=== PATIENT | female | born 1955 | race Hispanic/Latino ===

== ENCOUNTER 2016-12-28 23:36 | Emergency (ER) | payer OTHER ==
[~2016-12-28] VITALS: Ht 147.3 cm; Wt 53.6 kg
[~2016-12-28 23:36] MED LIST: ALBU8.5H2 INHALATION; ALEN70TA2 PO; CETI10TA27 PO; DICL75TA6 PO; FLUT12AE8 IH; FLUT16SP NS; OMEP20TA86 PO; [UNRECOGNIZED DRUG - CODE] AFFECT_EYE
[2016-12-28 23:44] VITALS: BP 119/77; PULSE 60; RESP 18; O2SAT 100
--- NOTE | 2016-12-29 00:02 | ED.REPORT ---
HPI-Abd Pain F 40 and Over Date of Service Dec 29, 2016 ED Provider: El Molina MD A 61 year old female with a history of diverticulosis, hemorrhoids, and recent documented cholelithiasis presents to the ED with epigastric pain onset 1800 this evening, after eating fatty food. The patient denies vomiting, fever, diarrhea, hematochezia, melena, or other symptoms. She has an appointment to schedule cholecystectomy scheduled with surgery for the near future. Nursing Notes Stated Complaint: ABDOMINAL PAIN Chief Complaint: Female Abdominal Pain Nursing Notes Reviewed: Yes Allergies: Coded Allergies: No Known Allergies (Verified Allergy, Unknown, 07/12/15) Scheduled Albuterol HFA (Proair HFA) 8.5 Gm Hfa.aer.ad 2 PUFFS INHALATION Q4H Alendronate Sodium (Fosamax) 70 Mg Tablet 70 MG PO W Diclofenac ER (Diclofenac ER) 75 Mg Tablet 75 MG PO DAILY Fluticasone Propionate (Flovent HFA 110 mcg) 12 Gm Aer.w.adap 2 PUFFS IH BID Fluticasone Propionate (Fluticasone Propionate Nasal) 16 Gm [place].susp 2 SPRAY NS BID Omeprazole (Omeprazole) 20 Mg Tablet.dr 20 MG PO DAILY Omeprazole (Omeprazole) 20 Mg Tablet.dr 20 MG PO BID Scheduled PRN Ondansetron ODT (Ondansetron ODT) 8 Mg Tab.rapdis 8 MG PO QID PRN PRN For Nausea Miscellaneous Medications Cetirizine HCl (All Day Allergy) 10 Mg Tab.chew 10 MG PO Jan/Polymyx B Sulf/Dexameth (Maxitrol Eye Drops) 5 Ml Drops.susp 5 ML OP General Time Seen by MD: 00:02 Chief Complaint Abdominal pain Hx Obtained From: Patient Arrived By: Walk-in Sudden in Onset?: Yes Onset Occurred: 5 - 8 hours ago Symptom Duration: Since onset Location: : Epigastric Quality: Painful Severity: Current: Moderate Severity: Maximum: Moderate Associated with: Denies: Diarrhea, Fever, Hematochezia, Melena, Vomiting Pertinent Negative: Relieved by nothing Context Related History: Reports: Cholelithiasis, Diverticulosis Recent Healthcare: No recent doctor visit Similar Sx Previous: Yes Past Medical History Past Medical History Cholelithiasis Diverticulosis Hemorrhoids Past Surgical History None reported Smoking History Never Smoker Ambulatory Status Independent Review of Systems Constitutional: Denies: Fever Respiratory: Denies: Non-productive cough, Shortness of breath GI: Reports: Abdominal pain (Epigastric), Denies: Diarrhea, Hematochezia, Melena, Vomiting Complete sys rev & neg: except as marked. Physical Exam Physical Exam Notes: Vital Signs Vital Signs (First) Date Time Temp Pulse Resp B/P Pulse Ox O2 Delivery O2 Flow Rate FiO2 12/28/16 23:44 35.6 60 18 119/77 100 Room Air Initial VS: Reviewed Head / Eyes: Atraumatic, Normocephalic ENT: Conjunctiva normal, No scleral icterus Neck: Supple, Full range of motion Skin: Warm, Dry, No cyanosis Neurologic: Alert, Oriented, Nonfocal Psychiatric: Mood/affect normal, Behavior normal, Normal thought content General/Constitutional: Awake, Alert, No acute distress, Well hydrated Respiratory / Chest: Breath sounds NL, Breath sounds = bilat, No respiratory distress Cardiovascular: Heart rate NL, Regular rhythm, Heart sounds NL Abdomen: Soft, BS normoactive Tenderness/Guarding/Rebound: Positive: Tender RUQ..., Tender epigastric Interpretation & Diagnostics Lab Results Interpretation Result Diagram: 12/29/16 0050 12/29/16 0050 Test 12/29/16 00:50 White Blood Count 12.2th/mm3 (3.8-10.1) Red Blood Count 4.30mil/mm3 (3.90-5.20) Hemoglobin 12.8g/dL (12.0-15.6) Hematocrit 37.5% (35.0-46.0) Mean Corpuscular Volume 87.2fL (81-100) Mean Corpuscular Hemoglobin 29.8pg (27.0-35.0) Mean Corpuscular Hemoglobin Concent 34.1% (32.0-37.0) Red Cell Distribution Width 12.6% (12.3-15.4) Platelet Count 197bil/L (150-400) Neutrophils (%) (Auto) 78.2% (40-74) Lymphocytes (%) (Auto) 15.7% (14-46) Monocytes (%) (Auto) 5.2% (4-12) Eosinophils (%) (Auto) 0.5% (0-5) Basophils (%) (Auto) 0.2% (0-3) Sodium Level 139mEq/L (134-144) Potassium Level 3.7mEq/L (3.5-5.2) Chloride Level 100mEq/L (97-108) Carbon Dioxide Level 27mmol/L (18-29) Blood Urea Nitrogen 12mg/dL (8-27) Creatinine 0.41mg/dL (0.57-1.00) Estimat Glomerular Filtration Rate 224mL/min (>59) Glucose Level 115mg/dL (60-99) Calcium Level 8.5mg/dL (8.5-10.1) Magnesium Level 1.9mg/dL (1.6-2.6) Total Bilirubin 0.3mg/dL (0.0-1.2) Aspartate Amino Transf (AST/SGOT) 56U/L (0-50) Alanine Aminotransferase (ALT/SGPT) 30U/L (0-32) Alkaline Phosphatase 105U/L (25-165) Total Protein 7.0g/dL (6.4-8.4) Albumin 4.0g/dL (3.4-5.0) Lipase 37U/L (13-60) Hold Mars Top Tube Received (Received) ECG Interpretation ECG Interpretation: Sinus rhythm rate 64 Probable lateral infarct, old Time: 00:32 Interpreted by: ED physician Re-Eval/Medical Decision Med Decision/Clinical Course 61-year-old female with documented cholelithiasis, presents with biliary colic. This began after a fatty meal. She was counseled to avoid fat. She has a mild white count elevation and no other evidence of cholecystitis, and is now pain-free. Discharged in stable condition for follow-up with surgery as already scheduled. Source of Hx: Old records Re-Evaluation/Progress : Time of Eval: 02:25 Patient Status: Condition improved, Pain improved Re-Evaluation/Progress Note: Patient is feeling much better. Discussed with patient lab results, diagnosis, and plan for discharge. Follow-up and return to the ER instructions given. Patient agrees with plan for care and all questions were addressed. Counseled Regarding: Diagnosis, Lab results, Need for follow-up, When/why to return to ED Discharge & Departure Shift Change Sign-Out Response to Therapy: Improved Primary Impression: Biliary colic Disposition: Home Discharge Condition All VS Reviewed: Yes Condition: Improved Patient Instructions: Biliary Colic (ED) Additional Instructions: Do not any fat. Follow-up with your surgeon as soon as possible. Omeprazole twice daily. Zofran up to four times daily if needed for nausea. Ibuprofen 600 mg if needed for pain. Return if you have pain lasting longer than six hours. Referrals: Argelia Peterson (PCP) [place] Attestation Portions of this note were transcribed by Anabelle Ricks. I, Dr. Molina, personally performed the history, physical exam, and medical decision-making; I reviewed and confirmed the accuracy of the information in the transcribed note. Signed by: Ciera Livingston, 12/29/2016, 03:10 copies to: Argelia Peterson Christopher W MD Dec 29, 2016 00:02 ANABELLE RICKS Dec 29, 2016 00:22
[2016-12-29] MEDS ORDERED: 0.9% Sodium Chloride 1,000 ML IV ONE (00:06)
[2016-12-29] MEDS ORDERED: HYDROmorphone 0.5 mg/0.5 mL iSecure Syringe IVPUSH PRN (00:10)
[2016-12-29] MEDS ORDERED: Pantoprazole 4 mg/mL 10 mL Inj IVPUSH ONE (00:10)
[2016-12-29] MEDS ORDERED: Ondansetron 2 mg/mL 2 mL Inj IVPUSH ONE (00:10)
[2016-12-29 01:03] LABS: BASOPHILS % (AUTO) 0.2 % (0-3); EOSINOPHILS % (AUTO) 0.5 % (0-5); MONOCYTES % (AUTO) 5.2 % (4-12); Mean Corpuscular Hemoglobin 29.8 pg (27.0-35.0); Mean Corpuscular Volume 87.2 fL (81-100); NEUTROPHILS % (AUTO) 78.2 % (40-74); Platelet Count 197 bil/L (150-400)
[2016-12-29 02:14] LABS: Magnesium 1.9 mg/dL (1.6-2.6)
[2016-12-29] MEDS ORDERED: OMEP20TA86 PO (02:32)
[2016-12-29] MEDS ORDERED: ONDA8TAB10 PO (02:32)
[2016-12-29 02:56] VITALS: BP 104/58; PULSE 82; RESP 13; O2SAT 100
[2017-01-31] MEDS ORDERED: PRED50TA PO (12:01)
[2017-01-31] MEDS ORDERED: [UNRECOGNIZED DRUG - CODE] PO (12:01)
[2017-01-31] MEDS ORDERED: GUAI120L57 PO (12:01)
[2017-01-31] MEDS ORDERED: GABA600T2 PO (12:01)
[2017-01-31] MEDS ORDERED: ASPI325T32 PO (12:01)
[2017-01-31] MEDS ORDERED: OMEG-38 PO (12:01)
== END 2016-12-29 02:50 | disposition home or self-care (01) ==
LOC: SED 23:36
DX: K80.20 Calculus of gallbladder without cholecystitis without obstruction (principal); Z87.19 Personal history of other diseases of the digestive system
CPT/HCPCS: 36415; 80053; 83690; 83735; 85025; 93005; 96361; 96374; 96375; 99285; J1170; J2405; J7030

== ENCOUNTER 2017-02-06 09:15 | Day surgery (SDC) | payer OTHER ==
[~2017-02-06] VITALS: Ht 147.3 cm; Wt 52.4 kg
[2017-02-06] VITALS (11 sets, daily range): BP systolic 88–126; BP diastolic 53–73; PULSE 51–73; RESP 13–18; O2SAT 92–100
[2017-02-06] MEDS: Lactated Ringer's 1,000 ML IV SCH ×2 (05:24→13:41)
[~2017-02-06 09:15] MED LIST changes: +ASPI325T32 PO; -CETI10TA27 PO; -FLUT12AE8 IH; +GABA600T2 PO; +GUAI120L57 PO; +OMEG-38 PO; +PRED50TA PO; +[UNRECOGNIZED DRUG - CODE] PO
[2017-02-06] MEDS ORDERED: Phenylephrine/NS 100 mCg/mL 10 mL Syringe IVPUSH ONE (09:16)
[2017-02-06] MEDS ORDERED: Ondansetron 2 mg/mL 2 mL Inj ONE (09:16)
[2017-02-06] MEDS ORDERED: fentaNYL-PF 50 mCg/mL 2 mL Inj ONE (09:16)
[2017-02-06] MEDS ORDERED: Dexamethasone 4 mg/mL Inj ONE (09:16)
[2017-02-06] MEDS ORDERED: Propofol 10,000 mCg/mL 20 mL Inj ONE (09:16)
[2017-02-06] MEDS ORDERED: Rocuronium 10 mg/mL 5 mL Inj ONE (09:16)
[2017-02-06] MEDS ORDERED: Neostigmine 1 mg/mL 10 mL Inj ONE (09:16)
[2017-02-06] MEDS ORDERED: Glycopyrrolate 0.2 MG/ML 1mL Inj ONE (09:16)
[2017-02-06] MEDS ORDERED: Bupivacaine-MPF 0.5% W/EPI 30 mL Inj INFILTRATE ONE (13:41)
[2017-02-06] MEDS ORDERED: Lactated Ringer's 500 ML IV PRN (13:42)
[2017-02-06] MEDS ORDERED: Lactated Ringer's 1,000 ML IV SCH (13:42)
--- NOTE | 2017-02-06 13:42 | PCM.HPANE ---
Patient Data Surgeon Admitting Provider: Attending Provider:Shante Aguayo MD Primary Care Physician:Argelia Peterson Other Provider:Nadya Monk Anesthesia Reason for Visit Chronic Cholecystitis Ht/WT & BMI Height (Feet): 4 Height (Inches): 10 Weight (Kilograms): 54.975 Body Mass Index 25.00 Allergies Coded Allergies: cyclobenzaprine (Verified Allergy, Unknown, UNKNOWN, 01/31/17) sulfamethoxazole (Verified Allergy, Unknown, UNKNOWN, 01/31/17) trimethoprim (Verified Allergy, Unknown, UNKNOWN, 01/31/17) Past Anesthesia History Anesthesia History: Denies:: Abnormal Airway, Anesthesia Reactions, Difficult Intubation, Fam Anesthesia Reaction, Fam Malignant Hypertherm, Malignant Hyperthermia Diabetes History Hx Diabetes?: No MRSA MRSA: No Medications Active Scripts Omeprazole 20 Mg Tablet.dr20 Mg PO BID #60 TABLET Prov:El Molina MD 12/29/16 Reported Medications Guaifenesin/D-Methorphan Hb/PE (Robitussin Cough-Cold Cf Liq)118 Ml Liquid1-2 Tsp PO HS PRN PRN ROBITUSSIN AC 01/31/17 Prednisone (PredniSONE)50 Mg Aeokxh42 Mg PO DAILY Ref 0 01/31/17 Gabapentin 600 Mg Pxjtit553 Mg PO BID Ref 0 01/31/17 [place]-3/Dha/Epa/Fish Oil (Fish Oil 1,000 mg Softgel)1 Each Capsule1 Each PO TID 01/31/17 Guaifenesin/Codeine Phosphate (Codeine-Guaifen 10-100 mg/5 ml)120 Ml Zaseft92 Ml PO QID PRN PRN 01/31/17 Aspirin 325 Mg Aleyun816-614 Mg PO TID #1 BOTTLE FOR 1 WEEK 01/31/17 Albuterol HFA (Proair HFA)8.5 Gm Hfa.aer.ad2 Puffs INHALATION Q4H #1 INHALER 07/12/15 Omeprazole 20 Mg Tablet.dr20 Mg PO DAILY 07/12/15 Jan/Polymyx B Sulf/Dexameth (Maxitrol Eye Drops)5 Ml Drops.susp5 Ml AFFECT_EYE TID 07/12/15 Fluticasone Propionate (Fluticasone Propionate Nasal)16 Gm [place].susp2 Maple NS BID #16 GM Ref 0 9/15/15 Diclofenac ER 75 Mg Oevfhp93 Mg PO BID 07/12/15 Alendronate Sodium (Fosamax)70 Mg Iwbdth53 Mg PO W 30 Days Ref 0 07/12/15 Discontinued Reported Medications Fluticasone Propionate (Flovent HFA 110 mcg)12 Gm Aer.w.adap2 Puffs IH BID #12 GM Ref 0 07/12/15 Cetirizine HCl (All Day Allergy)10 Mg Tab.chew10 Mg PO 07/12/15 Discontinued Scripts Ondansetron ODT 8 Mg Tab.rapdis8 Mg PO QID PRN For Nausea #20 TABLET Prov:El Molina MD 12/29/16 History History of ENT Problems?: Yes HEENT History: Positive for:: Sinus Problem (SINUSITIS) Denies:: Abnormal Airway Cataracts (HX OF ALLERGIC CONJUNCTIVITIS) Difficult Intubation Hearing Problem Hx of Heart Problems?: Yes Cardiovascular History: Positive for:: Chest Pain (PROBABLY R/T CHRONIC CHOLECYSTITIS/GERD) Denies:: Congestive Heart Failure Heart Murmur Hypertension (HYPERLIPIDEMIA) Hx of Respiratory Problem?: Yes Respiratory History: Positive for:: Asthma (MILD) Use of Inhalers / NEBS Denies:: Tuberculosis Use of C-PAP Machine Hx Neurologic Problems?: No Neurological History: Denies:: CVA Hx of GI Problems?: Yes Gastrointestinal History: Positive for:: Gall Bladder Disease (CHRONIC CHOLECYSTITIS=CURRENT PROBLEM C/OF INTERMITTANT EPIGASTRIC PAIN) Gastroesphageal Reflux Liver Disease (HX ELEVATED LFT'S) Denies:: Diverticulitis (DIVERTICLOSIS) Rectal Bleeding (HX HEMORRHOIDS, COLON POLYPS) Hx of Problems?: No Female Hx: Denies:: Currently Skin History: Denies:: History Skin Disorders? Pressure Ulcers Musculoskeletal History: Positive for:: Fibromyalgia Osteoarthritis (OSTEOPENIA) Hx of Psycho/Social Problems?: No Hx Surgeries?: Yes (DOUG/BSO) Hx Any Other Health Problems?: Yes Other History: Denies:: Cancer Endocrine Disease Hospitalization History Blood Transfusions: Denies:: Blood Transfusions Hx Diabetes: No Hx Alcohol Use: NoHx Substance Use: No Smoking Status: Never Smoker Have You Smoked inLast 12 mo: No Stop/Bang S-Snoring: Do You Snore Loudly: No T-Tired: feel tired, fatigued: No O-Obsered: Observed not breath: No P-Blood Pressure: treated: No B- Body Mass Index > 35 kg/m2: No A- Age over 50: Yes N- Neck Large Circumference: No G- Gender Male: No GABRIELA Total Score: 1 Risk Assessment Category Category 1A: Patient has history of documented sleep apnea, and HAS NOT received any narcotic, sedative or anesthesia administration during this stay. Category 1B: Patient has history of documented sleep apnea, and HAS received any narcotic , sedative or anesthesia administration during this stay Category 2: Patient has SUSPECTED Obstructive Sleep Apnea, and HAS received any narcotic , sedative or anesthesia administration during this stay. Category 3: Patient has SUSPECTED Obstructive Sleep Apnea and HAS NOT received narcotic, sedative or anesthesia administration during this stay. Category 4: Outpatient in Procedural Areas with known sleep apnea or who screen positive for High Risk via the STOP/BANG questionnaire. Exam Exam General Appearance: Alert, Oriented X3, Cooperative, No Acute Distress HEENT/AIRWAY: MP 2 Lungs: Clear to Auscultation, Normal Air Movement Heart: Exam Unremarkable, Regular Rate/Rhythm, No Murmurs/Rubs/Gallops Meds/Labs/Diagnostics Admission Meds Current Medications Lactated Ringer's (Lr) 1,000 ml @ 120 mls/hr Q8H20M IV Last administered on t 05:24; Start 02/06/17 at 05:00; Stop 02/06/17 at 13:19 Plan Impression Patient chart reviewed, patient interviewed and anesthestic plan with risks, benefits, and alternatives discussed, and informed consent obtained. ASA Physical Status: ASA2 Mod Systemic Disease Anesthetic Plan: GA Bene/Risks/Altern/Consents: Yes HP Complete Prior to Induction: Yes Srinivasa Finley MD Feb 06, 2017 10:12
[2017-02-06] MEDS ORDERED: Phenylephrine 10,000 mCg/mL Inj IVPUSH PRN (13:45)
[2017-02-06] MEDS ORDERED: fentaNYL-PF 50 mCg/mL 2 mL Inj IVPUSH PRN (13:45)
[2017-02-06] MEDS ORDERED: HYDROmorphone 1 mg/mL Inj IVPUSH PRN (13:45)
[2017-02-06] MEDS ORDERED: Dexamethasone 4 mg/mL Inj IVPUSH PRN (13:45)
[2017-02-06] MEDS ORDERED: Ondansetron 2 mg/mL 2 mL Inj IVPUSH PRN (13:45)
[2017-02-06] MEDS ORDERED: EPHEDrine Sulfate 50 mg/mL Inj IVPUSH PRN (13:45)
[2017-02-06] MEDS ORDERED: MetoCLOpramide 5 mg/mL 2 mL Inj IVPUSH PRN (13:45)
[2017-02-06] MEDS ORDERED: Atropine 0.4 mg/mL Inj IVPUSH PRN (13:45)
[2017-02-06] MEDS ORDERED: oxyCODONE-Acetamin 5-325 mg Tablet PO PRN (14:30)
--- NOTE | 2017-02-06 14:36 | PCM.SURGOP ---
Surgical Operative Report Date of Service: Feb 06, 2017 Pre Operative Diagnosis Chronic cholecystitis Post Operative Diagnosis Chronic cholecystitis Procedure: Laparoscopic cholecystectomy with intraoperative cholangiogram, with interpretation Surgeon and Senior Credit Analyst: Surgeon: Shante Aguayo M.D. Assistants: Naresh Burch PA-C; Jordy Rashid MS3 The presence of an assistant wrestling coach was necessary for dissection and retraction. Indication for Procedure This is a 61-year-old woman who presented with postprandial abdominal pain. She presented to the emergency department with a white blood cell count of 12, and underwent abdominal ultrasound revealing multiple gallstones without pericholecystic fluid or gallbladder wall thickening. She was discharged and referred to the surgery clinic. The risks and benefits of laparoscopic cholecystectomy were presented to her, and she elected to proceed. Findings: 1. Moderately inflamed gallbladder with overlying adhesions. 2. Normal intraoperative cholangiogram with a moderate cystic duct (the cholangiocatheter traversed through the cystic duct into the common bile duct), no filling defects, and adequate visualization of the right and left hepatic ducts, common hepatic duct, common bile duct, with good filling of the duodenum. Procedure Details The patient was brought to the operating room and placed in supine position. General endotracheal anesthesia was smoothly induced. Antibiotics were infused. A warming blanket and SCDs were placed. A foot board was placed. The operative field was prepped and draped in sterile fashion. A pause was performed to confirm the correct patient, procedure, site, and side. A transverse 10 mm incision was made just below the umbilicus. The abdomen was entered under direct vision using a Jessica port. Three additional 5 mm ports were placed in the epigastrium and right upper quadrant. The gallbladder was identified and lifted cephalad. There were moderate adhesions due to cholecystitis, and substantial pericholecystic edema. Dissection then proceeded to identify the cystic duct, cystic artery, and to expose the lower one-third of the cystic plate. Once there were two and only two structures entering the gallbladder, a clip was placed on the gallbladder side of the cystic duct. A ductotomy was made and a cholangiocatheter was inserted. A cholangiogram was performed and the cystic duct was patent with normal filling of the common hepatic duct, common bile duct, and right and left hepatic ducts, as noted above. The cholangiocatheter was then removed, two clips were placed on the cystic duct and it was divided. The cystic artery was clipped on both the gallbladder side and the patient's side and divided. The gallbladder was then removed from its bed on the liver with electrocautery. Prior to completely removing the gallbladder, a final look was taken at the stump of the cystic artery and cystic duct, and there was no bleeding or bile leak. The gallbladder was then fully removed from the liver and placed in an EndoCatch bag and removed. The three 5 mm ports were removed under direct vision, the 10 mm mid abdominal port was removed, and a [id number] 0 PDS was used to close the fascia. There was no fascial defect at the end of the case. 0.5% Marcaine with epinephrine was infused at all port sites for postoperative analgesia. The skin was closed with subcuticular 4-0 Monocryl. Sterile dressings were placed. Sponge, instrument, and needle counts were correct at the end of the procedure. The gallbladder was opened on the back table was found to contain 2 large stones as well as multiple small stones and sludge. The patient was awakened from general anesthesia and taken to the postoperative care unit in good condition. Complications There were no periprocedural complications identified. Surgical Specimen Removed: Yes Specimen sent to Pathology: Yes Surgical Specimen description: Gallbladder Anesthetic Plan: GA Grafts, Implants: None Output, Estimated Blood Loss: 5 (ml) Blood Administration during butcher: No Shante Aguayo MD Feb 06, 2017 14:36
[2017-02-06] MEDS ORDERED: HYDROmorphone 0.5 mg/0.5 mL iSecure Syringe ONE (15:01)
--- NOTE | 2017-02-06 15:12 | DRSVH ---
PROCEDURE: X-RAY OPERATIVE CHOLANGIOGRAM ([id number]) INDICATIONS: CHOLECYSTITIS COMPARISON: [facility], US, US ABDOMEN, 12/12/2016, 7:13. FINDINGS: Biliary ducts: The surgeon injected contrast into the biliary ducts after cannulation of the cystic duct stump. Visualized intra- and extrahepatic bile ducts are normal in caliber, without strictures. No intraluminal filling defects to suggest retained ductal stones or sludge. No evidence for iatro genic ductal injury. Duodenum: Contrast flows promptly through the sphincter of Oddi into the duodenum, which appears nor mal in caliber. IMPRESSION: Normal exam. Dictated by: Bradly CERNA Interpreted: Regina Mckeon MD on 02/06/2017 at 15:11 Transcribed by: NHI on 02/06/2017 at 15:11 Approved by: Regina Mckeon M.D. on 02/06/2017 at 22:26
--- NOTE | 2017-02-06 15:49 | PCM.ANEP1 ---
Post Anesthesia Phase 1 PACU Phase 1 Assessment Date of Service: Feb 06, 2017 Vital Signs Vital Signs Date Time Temp Pulse Resp B/P Pulse Ox O2 Delivery O2 Flow Rate FiO2 02/06/17 15:45 60 17 99/56 95 Room Air 02/06/17 15:29 36.2 63 13 95/61 92 Room Air 02/06/17 15:15 51 13 88/53 96 Room Air 02/06/17 15:00 36.2 56 18 109/61 99 Room Air 02/06/17 14:45 36.6 66 17 115/60 96 Room Air 02/06/17 14:40 71 15 115/61 100 Nasal Cannula 3 02/06/17 14:35 73 14 116/63 99 Nasal Cannula 4 02/06/17 14:32 36.7 121/62 02/06/17 10:10 36.3 63 16 126/73 98 Room Air Anesthetic Administered: GA Level of Alertness: Sleepy, easy to arouse ASH's with Equal Strength: Yes Pain: No Nausea or Vomiting: No Oxygen Delivery: Room Air Lungs: Clear to Auscultation, Normal Air Movement Dermatome Level: Full Sensation Srinivasa Finley MD Feb 06, 2017 15:49
--- NOTE | 2017-02-06 15:50 | PCM.ANEP2 ---
Post Anesthesia Evaluation ASA/CMS Post Anesthesia VS in Patient's Normal Range?: Yes Resp Stable; Airway Patent?: Yes CV Function & Hydration Stable: Yes Mental Status Recovered?: Yes Pain control Satisfactory?: Yes N/V Control Satisfactory?: Yes Srinivasa Finley MD Feb 06, 2017 15:50
--- NOTE | 2017-02-08 13:11 | PATH ---
SURGICAL PATHOLOGY Attending Physician:Shante Aguayo MD CASE STATUS: Signed Out PATIENT NAME: WILLIAM RODNEY PID: [id number] : 1955 DATE COLLECTED:02/06/2017 00:00 SPECIMEN: Gallbladder CLINICAL HISTORY: CHRONIC CHOLECYSTITIS 1. GALLBLADDER FINAL DIAGNOSIS: 1.GALLBLADDER: ACALCULOUS CHRONIC CHOLECYSTITIS. ICD10 CODE K81.1 GROSS DESCRIPTION: The specimen is received in one formalin filled container labeled with the patient's name, sublabeled "gallbladder" and consists of an opened 7.5 x 1.5 x 1.0 CM gallbladder. The serosa is smooth. The wall is 0.2-0.3 CM in thickness. The mucosa is a light green to dark green in color. The lumen contains 2 green faust calculi which range in size from 1.3-1.5 CM in greatest dimension. 5 reimbursement representative sections are submitted in one cassette. 02/07/2017 DAC MICRO DESCRIPTION: See diagnosis. ICD-9 CODES: CPT CODES: 1: 68827 Electronically Signed Out Darryl Thomas MD [facility] [address], [place] [address] Technical component performed at [facility], [address] [place] [address] Ave[address], [place], [address]
== END 2017-02-06 23:59 | disposition home or self-care (01) ==
LOC: SAS 09:15
PROVIDERS: ATTEND Surgery
DX: K81.1 Chronic cholecystitis (principal); K82.9 Disease of gallbladder, unspecified; J45.909 Unspecified asthma, uncomplicated; K21.9 Gastro-esophageal reflux disease without esophagitis; M79.7 Fibromyalgia; Z79.82 Long term (current) use of aspirin; Z79.899 Other long term (current) drug therapy